=== PATIENT | female | born 1990 | race Caucasian/White ===

== ENCOUNTER → 2018-05-25 13:33 | Outpatient (CLI) | payer OTHER, MEDICAID, SELFPAY ==
[2018-05-25 15:31] LABS: Appearance Urine UA CLEAR; Bilirubin Urine UA NEGATIVE (NEGATIVE); Color Urine UA YELLOW; Glucose Urine UA NEGATIVE (Normal); Ketones Urine UA NEGATIVE (NEGATIVE); Leukocyte Esterase Urine UA NEGATIVE (NEGATIVE); Nitrite Urine UA NEGATIVE (Negative); Occult Blood Urine UA NEGATIVE (Negative); Protein Urine UA NEGATIVE (Negative); Urobilinogen Urine UA 0.2 E.U./dL (0.2)
[2018-05-25 15:32] LABS: Add Manual Diff / Slide Review NO; Basophils Percent Auto 0.3 % (0-2); Eosinophils Percent Auto 1.3 % (2-4); Hematocrit 39.6 % (36-46); Hemoglobin 13.2 g/dL (12.0-16.0); Lymphocytes Percent Auto 30.7 % (25-40); Mean Corpuscular HGB Conc 33.3 % (30-36); Mean Corpuscular Hemoglobin 27.8 PG (26-34); Mean Corpuscular Volume 83.7 fL (80-100); Monocytes Percent Auto 8.7 % (3-14); Neutrophils Absolute Auto 3300 /uL (3000-5900); Platelet Count 209 X10^3/uL (150-400); Red Blood Cell Count 4.73 X10^6/uL (4.0-5.2); Red Cell Distribution Width 13.8 % (11.6-14.8); White Blood Cell Count 5.5 X10^3/uL (4.5-11.0)
[2018-05-25 16:27] LABS: Hepatitis B Surface Antigen NEGATIVE s/c (NEGATIVE); Rubella Antibody IgG 2.9 IU/mL (>15)
[2018-05-25 16:33] LABS: HIV 1 and 2 Antibody NEGATIVE (NEGATIVE); Hep C Virus Ab w/Reflex Quant NEGATIVE s/c (NEGATIVE)
[2018-05-27 10:58] LABS: RPR Screen Nonreactive (Nonreactive)
[2018-05-27 13:51] LABS: HSV1IGG < 0.90 index (< 0.90)
== END ==
PROVIDERS: Visit Provider Obstetrics & Gynecology
DX: Z34.81 Encounter for supervision of other normal pregnancy, first trimester (principal)
CPT/HCPCS: 36415; 80055; 81003; 86695; 86696; 86703; 86787; 86803; 86850; 86900; 86901; 87077; 87086

== ENCOUNTER → 2018-08-09 14:48 | Outpatient (CLI) | payer OTHER, SELFPAY ==
[2018-08-17 09:29] LABS: AFP, Serum 47.5 ng/mL; Calc Gestational Age 18.6; Cigarette Smoker N; Donated Egg NOT GIVEN; Donor Egg Age NOT GIVEN; Estriol, Free 1.89 ng/mL; Inhibin A, Dimeric 148 pg/mL; Maternal Weight 138 lbs; Number of Fetuses NOT GIVEN; Previous Pregnancy Down Syndro NOT GIVEN; hCG, MoM 0.64; hCG, Serum 15.1 IU/mL
== END ==
PROVIDERS: PCP Obstetrics & Gynecology; Visit Provider Obstetrics & Gynecology
DX: Z34.82 Encounter for supervision of other normal pregnancy, second trimester (principal)
CPT/HCPCS: 36415; 82105; 82677; 84702; 86336

== ENCOUNTER → 2018-08-26 09:15 | Outpatient (CLI) | payer OTHER, SELFPAY ==
--- NOTE | 2018-08-26 | DI.US.S_ITS ---
PROCEDURE: US OB >= 14 WEEKS FETUS INDICATIONS: anatomy survey OUTSIDE/PRIOR DATING DATA: Last menstrual period (LMP): 04/01/18. LMP-based estimated date of delivery (THALIA): 01/06/19. First dating scan (date and location): 06/07/18. Estimated date of delivery (THALIA) from first dating scan: 01/03/19. TECHNIQUE: Real-time scanning was performed of the fetus, with image documentation and biometric measurements. Endovaginal scanning: Not needed COMPARISON: None. FINDINGS: General: A single living intrauterine gestation is present. Presentation: Oblique, head directed leftward. Placenta: Placental position is anterior, without previa. Amniotic fluid index: 11.7 cm, normal range is 5-24 cm. heart rate: 150 beats per minute. Maternal cervical canal: 4.2 cm long. Normal lower limit is 2.5 cm. biometrics: Biparietal diameter: 4.9 cm, 20 weeks 6 days Head circumference: 18.4 cm, 20 weeks 6 days Abdominal circumference: 17.2 cm, 22 weeks 1 day Femur length: 3.6 cm, 21 weeks 2 days Estimated gestational age from initial scan: 21 weeks 3 days Composite gestational age from present scan: 22 weeks 2 days Estimated weight and percentile: 440 g, 48th percentile Measurement variability for biometric dating: +/- 7 days from 14 weeks to 15 weeks 6 days gestation, +/- 10 days from 16 weeks to 21 weeks 6 days gestation, +/- 2 weeks from 22 weeks to 27 weeks 6 days gestation, +/- 3 weeks for 28 weeks gestation or later. weight reference: 4500 g or EFW >90/95% is considered macrosomia or large for gestational age. EFW <10% is small for gestational age. EFW 5% or less is considered intra-uterine growth restriction. Anatomic survey: Neuro: Ventricles are non-dilated at less than 10 mm. Cisterna magna is normal at 3-11 mm. Cerebellum is normal in size and morphology. Nuchal skin fold: Normal at less than 6 mm between 14-21 weeks gestational age. Face: Nose and lips, facial profile are normal. Spine: No evidence for spina bifida. Heart: 4-chambered heart is present, with normal ventricular outflow tracts. Note was made of echogenic foci at the left ventricle, without evidence of cardiac morphologic anomaly. This likely is coincidental reflection from the papillary vasculature at time of scanning. Diaphragm: Diaphragm is intact. Stomach: Left-sided stomach is present. Kidneys: No hydronephrosis. Normal is less than 5 mm in 2nd trimester, less than 7 mm in 3rd trimester. Cord: 3-vessel cord has orthotopic insertion. Bladder: Normal in size. Extremities: All 4 extremities identified. IMPRESSION: Appropriate interval growth, no anomaly seen. The echogenic focus within the left ventricle is consistent with high reflecting the at the papillary muscle. In the absence of a morphologic anomaly elsewhere this is considered a normal variant. At one point during the examination there was a question of whether marginal placenta was present but the appearance resolved and is considered a manifestation of transient uterine contraction that mimic the appearance of the placenta in that area. Subsequent images clearly show no evidence of placenta previa or marginal placenta. Dictated by: Matthew Justice M.D. on 08/27/2018 at 16:23 Approved by: Matthew Justice M.D. on 08/27/2018 at 16:30
== END ==
PROVIDERS: PCP Obstetrics & Gynecology; Visit Provider Obstetrics & Gynecology
DX: Z34.82 Encounter for supervision of other normal pregnancy, second trimester (principal); Z3A.22 22 weeks gestation of pregnancy
CPT/HCPCS: 76811

== ENCOUNTER 2018-08-29 19:11 | Outpatient (CLI) | payer OTHER, SELFPAY ==
[2018-08-29 19:49] LABS: Bacteria Urine None Seen; RBC Urine None Seen (0-5/HPF)
[2018-08-29 19:54] LABS: Appearance Urine UA CLEAR; Bilirubin Urine UA NEGATIVE (NEGATIVE); Color Urine UA YELLOW; Glucose Urine UA NEGATIVE (Negative); Ketones Urine UA NEGATIVE (NEGATIVE); Leukocyte Esterase Urine UA NEGATIVE (NEGATIVE); Nitrite Urine UA NEGATIVE (Negative); Occult Blood Urine UA NEGATIVE (Negative); Protein Urine UA NEGATIVE (Negative); Specific Gravity Urine UA 1.015 (1.000-1.035); Urobilinogen Urine UA 0.2 E.U./dL (0.2); pH Urine UA 6.5 (4.5-8.0)
[2018-08-29 19:59] LABS: Culture Indicated Urine Cult Not Indicated; Squamous Epithelial Cell Urine 0-1 /HPF; WBC Urine 0-1/HPF (0-5/HPF)
== END 2018-08-29 20:20 | disposition home or self-care (01) ==
LOC: LABOR 20:20 → OB 08-30 12:56
PROVIDERS: PCP Obstetrics & Gynecology
DX: O26.892 Other specified pregnancy related conditions, second trimester (principal); R10.2 Pelvic and perineal pain; Z3A.21 21 weeks gestation of pregnancy
CPT/HCPCS: 59025; 81001; G0378; G0379

== ENCOUNTER 2018-09-13 14:45 | Observation (INO) | payer OTHER, SELFPAY ==
[2018-09-13 16:56] LABS: Fetal Fibronectin Negative
--- NOTE | 2018-09-13 18:36 | PM.OBTRLD ---
Visit Information Visit Information Date of evaluation: 09/13/18 Primary OB Provider: Sudha Stephens On-call OB Provider: Sudha Stephens Reason for Evaluation: Yes pre-term labor Comments/Additional reasons for admission: Patient is a 28-year-old who presented to the office for a routine OB visit complaining of contractions. She was sent to the Center for monitoring. She was given oral fluids. The contractions subsided. A urine showed concentration and ketones. [facility] Social History Smoking Status: Former smoker Social History Smoking Status: Former smoker Objective Labs Labs: Laboratory Results - last 24 hr 09/13/18 15:32 Fibronectin Negative Evaluation Evaluation Baseline heart rate: 135 Variability: Average (6-10) monitor accelerations: Present monitor decelerations: Absent Category of Tracing: II (Appropriate for gestational age) Cervical dilation (cm): 0 Laboratory results: Laboratory Tests 09/13/18 15:32 Fibronectin Negative Comments: fibronectin - negative Diagnosis, Plan/Disposition Final Diagnosis (1) 23 weeks gestation of : Current Visit: Yes Status: Acute (2) contractions: Current Visit: Yes Status: Acute Plan/Disposition Plan: Assessment: 28-year-old at 23 weeks gestation with dehydration Plan: Push oral fluids Signs and symptoms of labor review Follow-up in 2 weeks for routine OB appointment OB Disposition: home
--- NOTE | 2018-09-13 18:40 | P.TNLD_ITS ---
Visit Information Visit Information Date of evaluation: 09/13/18 Primary OB Provider: Sudha Stephens On-call OB Provider: Sudha Stephens Reason for Evaluation: Yes pre-term labor Comments/Additional reasons for admission: Patient is a 28-year-old who presented to the office for a routine OB visit complaining of contractions. She was sent to the Center for monitoring. She was given oral fluids. The contractions subsided. A urine showed concentration and ketones. [facility] Social History Smoking Status: Former smoker Social History Smoking Status: Former smoker Objective Labs Labs: Laboratory Results - last 24 hr 09/13/18 15:32 Fibronectin Negative Evaluation Evaluation Baseline heart rate: 135 Variability: Average (6-10) monitor accelerations: Present monitor decelerations: Absent Category of Tracing: II (Appropriate for gestational age) Cervical dilation (cm): 0 Laboratory results: Laboratory Tests 09/13/18 15:32 Fibronectin Negative Comments: fibronectin - negative Diagnosis, Plan/Disposition Final Diagnosis (1) 23 weeks gestation of : Current Visit: Yes Status: Acute (2) contractions: Current Visit: Yes Status: Acute Plan/Disposition Plan: Assessment: 28-year-old at 23 weeks gestation with dehydration Plan: Push oral fluids Signs and symptoms of labor review Follow-up in 2 weeks for routine OB appointment OB Disposition: home
--- NOTE | 2018-09-14 23:28 | P.TNLD_ITS ---
Visit Information Visit Information Date of evaluation: 09/13/18 Primary OB Provider: Sudha Stephens Reason for Evaluation: Yes pre-term labor [facility] Social History Smoking Status: Former smoker Social History Smoking Status: Former smoker Evaluation Evaluation Baseline heart rate: 135 Variability: Average (6-10) (Appropriate for gestational age) monitor accelerations: Present monitor decelerations: Absent Contraction Frequency (minutes): 0 Category of Tracing: II (Appropriate for gestational age) Laboratory results: Laboratory Tests 09/13/18 15:32 Fibronectin Negative Diagnosis, Plan/Disposition Final Diagnosis (1) 23 weeks gestation of : Current Visit: No Status: Acute (2) contractions: Current Visit: No Status: Acute Plan/Disposition Plan: Discharge to home Signs and symptoms of labor review Follow-up for regularly scheduled visit OB Disposition: home
== END 2018-09-13 18:00 | disposition home or self-care (01) ==
PROVIDERS: Admitting Provider Obstetrics & Gynecology; PCP Obstetrics & Gynecology; Visit Provider Obstetrics & Gynecology
DX: O60.03 Preterm labor without delivery, third trimester (principal); Z3A.23 23 weeks gestation of pregnancy
CPT/HCPCS: 59025; 59050; 82731; G0378; G0379

== ENCOUNTER → 2018-09-18 09:06 | Outpatient (CLI) | payer OTHER, SELFPAY ==
[2018-09-18 10:46] LABS: Hematocrit 32.4 % (36-46)
[2018-09-18 11:05] LABS: GTT (PREG) 1 Hour PP 50gm Dose 94 mg/dL (76-139)
== END ==
PROVIDERS: PCP Obstetrics & Gynecology; Visit Provider Obstetrics & Gynecology
DX: Z34.82 Encounter for supervision of other normal pregnancy, second trimester (principal)
CPT/HCPCS: 36415; 82950; 85014; 85018

== ENCOUNTER → 2018-12-08 09:16 | Outpatient (CLI) | payer OTHER, SELFPAY ==
[2018-12-09 13:12] LABS: Strep Grp B PCR NEG for Grp B Strep
== END ==
PROVIDERS: PCP Obstetrics & Gynecology; Visit Provider Obstetrics & Gynecology
DX: Z34.83 Encounter for supervision of other normal pregnancy, third trimester (principal)
CPT/HCPCS: 87653

== ENCOUNTER 2018-12-29 20:05 | Inpatient (IN) | payer OTHER, SELFPAY ==
[2018-12-29 21:04] LABS: Add Manual Diff / Slide Review NO; Basophils Absolute Auto 0 /uL (0-100); Basophils Percent Auto 0.5 % (0-2); Eosinophils Absolute Auto 100 /uL (0-450); Eosinophils Percent Auto 1.2 % (2-4); Hematocrit 33.3 % (36-46); Hemoglobin 10.7 g/dL (12.0-16.0); Lymphocytes Absolute Auto 2100 /uL (1100-4500); Lymphocytes Percent Auto 30.3 % (25-40); Mean Corpuscular HGB Conc 32.1 % (30-36); Mean Corpuscular Hemoglobin 23.6 PG (26-34); Mean Corpuscular Volume 73.3 fL (80-100); Monocytes Absolute Auto 700 /uL (0-900); Monocytes Percent Auto 9.4 % (3-14); Neutrophils Absolute Auto 4100 /uL (1500-7000); Neutrophils Percent Auto 58.6 % (50-75); Platelet Count 243 X10^3/uL (150-400); Red Blood Cell Count 4.55 X10^6/uL (4.0-5.2); Red Cell Distribution Width 15.9 % (11.6-14.8)
--- NOTE | 2018-12-30 | PATH_ITS ---
[facility] Accession Number: [id number] . 01 Material submitted: . fallopian tube - BILATERAL FALLOPIAN TUBES SEGMENTS . 02 Diagnosis: Bilateral Fallopian Tube Segments: Complete cross-sections of segments of fallopian tube x2. MRV/01/03/2019 . 02 Electronically signed: . Nata Gonzales MD, Pathologist NPI- [id number] . 01 Gross description: . Received in formalin, labeled with the patient's name and bilateral fallopian tube segments, are two tubular segments of fallopian tube without fimbriated ends measuring 1.5 cm in length by 0.5 cm in diameter and 1.3 cm in length by 0.4 cm in diameter. The specimens are submitted intact in two cassettes to be cut by histology. (MERCEDEZ:[id number]) /MRV . 02 Pathologist provided ICD-10: Z30.2 . 02 CPT . 193297 Performed at: 01 [facility] [address] [facility], [place], [place] [id number] MD Faizan Palm MD Phone: [phone] Performed at: 02 [facility] [address] [place], [place] [id number] MD Zuleyka Mireles MD Phone: [phone]
[2018-12-30] MEDS: miSOPROStol 25 MCG TABLET VAG (05:08)
[2018-12-30] MEDS: LACTATED RINGERS 1,000 ML 100 ML IV (09:07)
[2018-12-30] MEDS: OXYTOCIN PREMIX 30 UNIT/500 ML PLAST..BAG IV (09:08)
[2018-12-30] MEDS: LACTATED RINGERS 1,000 ML 42 ML IV (17:05)
[2018-12-30] MEDS: BUPIVACAINE 0.5% W/ EPI (PF) VIAL 30 ML INJ (18:09)
[2018-12-30] MEDS: KETOROLAC 30 MG/ML VIAL IV (18:32)
[2018-12-30 18:36] VITALS: BP 83/56; BP 86/54; PULSE 95; PULSE 96; RESP 13; TEMP 36.1; O2SAT 96; O2SAT 97
[2018-12-30 18:41] VITALS: BP 92/62; PULSE 102; RESP 17; O2SAT 95
[2018-12-30 19:56] VITALS: TEMP 36.8
[2018-12-30] MEDS: OXYCODONE/ACETAMINOPHEN 5/325 TABLET 2 TAB PO (22:12)
[2018-12-30 23:32] VITALS: BP 107/70
[2018-12-31] MEDS: KETOROLAC 30 MG/ML VIAL IV ×3 (00:30→12:34)
[2018-12-31] MEDS: OXYCODONE/ACETAMINOPHEN 5/325 TABLET 2 TAB PO ×4 (02:27→16:32)
[2018-12-31 06:02] LABS: Hematocrit 32.6 % (36-46); Hemoglobin 10.6 g/dL (12.0-16.0)
[2018-12-31] MEDS: DOCUSATE 250 MG CAPSULE PO (12:32)
[2018-12-31] MEDS: PRENATAL VIT,CALC/IRON/FOLIC 1 TABLET 1 TAB PO (12:32)
[2018-12-31 17:06] VITALS: BP 102/63; PULSE 73; RESP 17; TEMP 36.7
[2018-12-31] MEDS: MEASLES,MUMPS,RUBELLA VACC/PF 0.5 ML VIAL SUBCUT (18:38)
--- NOTE | 2019-01-01 03:10 | PM.GYNOP.1 ---
Operative Date/Time/Diagnoses Date of procedure: 12/30/18 Time of procedure: 17:45 Pre-op diagnosis: Multiparity Desires permanent sterilization Post-op diagnosis: same Procedure: Procedures Operation Date: 12/30/18 17:00 Actual Procedures Side Surgeon p Post Bilateral Tubal Ligation Sudha Stephens MD Indications: Multiparity Desires permanent sterilization Surgeon: Sudha Stephens Anesthesia Type: Epidural and Local Operative Notes Findings: Normal uterus, tubes, and ovaries Closure Type: primary Specimen(s): portion of left tube and portion of right tube Estimated blood loss (mL): 5 Blood products transfused: none Procedure in detail: After informed consent was obtained, the patient was taken to the operating room where she was placed in the dorsal supine position. After epidural anesthesia was found be adequate, she was prepped and draped in the usual sterile fashion. A timeout was performed. 6 mL of half percent Marcaine with epinephrine were injected in the umbilical fold. A 2 cm incision was made. This was carried down to the underlying layer fascia. The fascia was nicked in the midline and the incision extended bilaterally with the Roberts scissors. The peritoneum was grasped between 2 hemostats and entered sharply with the Metzenbaum scissors. The left tube was grasped with a Farheen and carried out to the fimbriated end. Two [address] to the distal end a 2-1/2 cm segment of tube was ligated with O-plain chromic x 2. A 1 cm segment of tube was excised. The ends of the tube were cauterized for hemostasis. The left tube was returned to the peritoneal cavity. This was repeated on the patient's right tube. Hemostasis was achieved. The fascia was reapproximated with 0 Vicryl. The subcutaneous layer was reapproximated with 3-0 Vicryl with 2 simple interrupted sutures. The skin was closed with 4-0 Biosyn in a sub cuticular fashion. Steri-Strips, 2 x 2's, and an OpSite were placed. Sponge, lap, and instrument counts were correct x-2. The patient tolerated the procedure well, was taken to PACU in stable condition. Complications: none Post-operative Condition: stable Disposition: PACU Plan for aftercare: To the center after recovery
--- NOTE | 2019-01-19 13:34 | P.HPOB_ITS ---
OB HPI Date/Time Date of admission: 12/30/18 Date Patient Seen: 12/30/18 Time Patient Seen: 07:30 History of Present Condition Chief complaint: Labor : 7 Para: 3 Estimated Date of Delivery: 01/06/19 Estimated Gestational Age (weeks): 39 Narrative: Kanwal Guzman is a 28 year old female 7 para 3 at 39 weeks g estation for induction of labor Patient is and is being deployed in a few days Patient has a history of rapid labors. Indications Indication for induction OB: history of rapid labor History of Present care: good care, initiated at week # (9), number of visits (9) and pounds weight gain (28) Dating criteria: LMP confirmed by 1st trimester US Ultrasounds: normal 1st trimester US and normal mid trimester US Obstetrical complications: none Medical complications: none Preadmission Labs Blood type: O (+) positive -: Antibody screen: negative, GBS status: negative, HBsAG: negative, HIV: negative, HSV 1: negative, HSV 2: positive and RPR/VDLR: negative -: Chlamydia screen: not detected and Gonorrhea screen: not detected -: Rubella: not immune and Varicella: immune HCT: 39.6 HCAB: negative PAP: Normal Quad screen: Normal Urine: Negative 1 hr GTT: 94 Prior (ies) History: 3 , 1 delivered in the bed without pt aware 2 EAB 1 SAB Evaluation Evaluation Baseline heart rate: 140 Variability: Moderate (11-25) monitor accelerations: Present monitor decelerations: Absent Contraction Frequency (minutes): 5 Category of Tracing: I Cervical dilation (cm): 1 Cervical effacement (%): 75 station: -2 Laboratory results: Laboratory Tests 12/29/18 12/29/18 12/31/18 20:45 20:45 05:52 WBC 7.0 RBC 4.55 Hgb 10.7 L 10.6 L Hct 33.3 L 32.6 L MCV 73.3 L MCH 23.6 L MCHC 32.1 RDW 15.9 H Plt Count 243 Neut % (Auto) 58.6 Lymph % (Auto) 30.3 Deuel % (Auto) 9.4 Eos % (Auto) 1.2 L Baso % (Auto) 0.5 Neut # (Auto) 4100 Lymph # (Auto) 2100 Deuel # (Auto) 700 Eos # (Auto) 100 Baso # (Auto) 0 Blood Type O Positive Antibody Screen Negative [facility] Medical History (Updated 01/12/19 @ 12:31 by Danielle Latif MA) S/P tubal ligation (Resolved ~12/30/18) Social History Smoking Status: Former smoker Social History Smoking Status: Former smoker Meds Home Medications Medication Instructions Recorded Confirmed Type Double Electric Breast Pump #1 ea 11/17/18 01/12/19 Rx ibuprofen 600 mg PO Q6H PRN #30 tab 12/31/18 01/12/19 Rx Allergies Allergy/AdvReac Type Severity Reaction Status Date / Time hydrocodone AdvReac Severe HIVES & Verified 01/12/19 12:31 EXTREME VOMITING magnesium carbonate AdvReac Mild Topical Verified 01/12/19 12:31 itching, rash PRE OP SANI WIPES Allergy Intermediate RASH Uncoded 01/12/19 12:31 Exam Vital Signs (past 8 hours): Oxygen Delivery Method Room Air Narrative Exam Narrative: Generally: No acute distress Fundal height: 39 cm Estimated weight: 8 lb Extremities: Negative Homans, no edema Objective Labs Result Diagrams: 12/31/18 05:52 Assessment and Plan Assessment and Plan Assessment and Plan narrative: Assessment: 28-year-old 7 para 3 at 39 weeks gestation status post cervical ripening for induction of labor Desires permanent sterilization Plan: Pitocin per protocol 2 Artificial rupture of membranes when able Epidural analgesia as needed Expected management to spontaneous vaginal delivery tubal ligation Time Spent with Patient Total time spent with greater than 50% in coordination of care (as documented) at patient's floor/unit and/or counseling patient:: 15-24 minutes
--- NOTE | 2019-01-19 13:34 | PM.OBPRVD ---
Events: Labor Induction Delivery date: 12/30/18 Intrapartal events: None Cervical ripening method: per misoprostal protocol Induction method: per pitocin protocol Delivery augmentation: rupture of membranes Delivery monitor: external FHT and external uterine Route of delivery: Episiotomy description: None L&D Laceration Description: None Estimated blood loss (mL): 150 Anesthesia type: Epidural Complications: None Narrative: Patient complete and pushed for 10 min. At 2:25 p.m., a live female infant delivered spontaneously over an intact perineum. The remainder of the body delivered without difficulty and was placed on mom's abdomen. The cord was double clamped and cut after it stopped pulsing. Cord bloods were obtained. The placenta delivered intact with a 3 vessel cord at 2:30 p.m.. Pitocin was given in the IV fluids. Fundus was massaged to firm. No lacerations. Apgars 8 at 1 min and 9 at 5 min. Weight 8 lb 2.6 oz. Epidural analgesia. Mom and stable to recovery. Plan for aftercare: To routine carte
--- NOTE | 2019-01-19 13:40 | P.DS_ITS ---
Discharge Providers Date of admission: 12/29/18 20:05 Discharge Date: 12/31/18 Primary care physician: Sudha Stephens MD Consults: 12/30/18 18:57 Consult to Operating Room Nurse Routine Comment: Discharge provider: Sudha Stephens MD Summary Date Patient Seen: 12/31/18 Time Patient Seen: 07:30 Procedures: Cytotec cervical ripening Pitocin induction of labor Artificial rupture of membranes Epidural analgesia Spontaneous vaginal delivery tubal ligation Hospital Course: Patient is a 28-year-old 7 para 3 at 39 weeks gestation who presented for cervical ripening on 12/29/2018. She received 1 dose of Cytotec. On the morning of 12/30/2018 Pitocin was started. Artificial rupture of membranes was performed. An epidural was received for pain management. She progressed and had a spontaneous vaginal delivery without complication. She had a tubal ligation later that day. Her course was unremarkable and she was discharged home on 12/31/2018. Peripartum Data Delivery Method: Natural Vaginal Laceration description: None Episiotomy description: None Procedures: Epidural analgesia Cytotec cervical ripening Pitocin induction of labor Artificial rupture of membranes Spontaneous vaginal delivery tubal ligation complications: none Status at Discharge Cognitive/behavioral status at discharge: oriented Functional status at discharge: independent ambulation Overall status at discharge: patient is progressing back to baseline Time Spent with Patient Total time spent providing and/or coordinating discharge services: Less than 30 minutes Objective Labs Result Diagrams: 12/31/18 05:52 Exam Vital Signs (past 8 hours): Oxygen Delivery Method Room Air Narrative Exam Narrative: Generally: Patient is sitting up in bed, holding infant, no acute distress Fundus: Firm at U -1 Incision: Clean dry and intact with op site Extremities: Negative Homans, trace edema Discharge Plan Discharge Plan Patient Disposition: Home Discharge comment: Call with fever, chills, redness or drainage around the incision or bleeding vaginally more than a pad in an hour Discharge Med Rec/Prescriptions Prescriptions: New ibuprofen 600 mg tablet 600 mg PO Q6H PRN (Reason: pain and cramping) Qty: 30 RF: 2 Discontinued oxycodone-acetaminophen [Percocet] 5-325 mg tablet 1 tab PO Q4-6H PRN (Reason: pain) Qty: 20 RF: 0 No Action Double Electric Breast Pump Qty: 1 RF: 0 Follow up/Referrals: Sudha Stephens MD [Primary Care Provider] - 2 Weeks (Please follow up with Dr. Stephens for an incision check on ThursdayJanuary 12 at 12:15 with a 11:55 check in time. Please follow up with Dr. Stephens for a post check on February 10 at 2:30 with a 2:10 check in time. If you have any questions/concerns or need to reschedule please call [phone].) Provider Discharge Instructions Diet: Regular Activity: No intercourse Skin/Wound/Dressing Care Report to your healthcare provider any signs of infection, such as:: chills, fever, increased pain, unusual drainage and unusual redness Dressing: Remove outer plastic dressing and guaze after first shower Visit Report/Discharge Packet Instructions: DI for Tubal Ligation, DI for Labor and Delivery, Vaginal Stand Alone Forms: Discharge: Care Discharge Data Primary Care Provider: Sudha Stephens Attending Provider: Sudha Stephens Admit Date/Time: 12/29/18 20:05 Discharges patient from system. Discharge Date/Time: 12/31/18 19:15
== END 2018-12-31 19:15 | disposition home or self-care (01) | DRG 798 ==
PROVIDERS: Admitting Provider Obstetrics & Gynecology; PCP Obstetrics & Gynecology; Visit Provider Obstetrics & Gynecology
PROC: 10E0XZZ Delivery of Products of Conception, External Approach (ICD-10-PCS; CPT 58605; principal; 2018-12-30 17:00)
DX: O80 Encounter for full-term uncomplicated delivery (principal); Z37.0 Single live birth; Z3A.39 39 weeks gestation of pregnancy; Z30.2 Encounter for sterilization
CPT/HCPCS: 01967; 36415; 36592; 58605; 59050; 59400; 85014; 85018; 85025; 86850; 86900; 86901; 88302; G0379; J1885; J2250; J2590; J3010

== ENCOUNTER 2019-10-25 17:05 | Emergency (ER) | payer OTHER, SELFPAY ==
[2019-10-25 17:07] VITALS: BP 105/69; PULSE 118; RESP 13; TEMP 37.1; O2SAT 100; BMI 18.4
--- NOTE | 2019-10-25 17:32 | PC.NURSE ---
reports, breast feeding 10 months, noted left breast pain and fever along with migraine headache arrived with dark glasses. denies fever,coughing,+nausea with vomiting due to migraine. fever treated with tylenol aircraft captain.
[2019-10-25 17:33] VITALS: TEMP 37.2
--- NOTE | 2019-10-25 17:49 | ED_ITS ---
HPI - Skin/Abscess/Foreign Bdy <KOSTAS Teresa - Last Filed: 10/25/19 20:54> General Chief complaint: Skin/Abscess/Foreign Body Stated complaint: thinks mastitis Time Seen by Provider: 10/25/19 17:29 Source: patient Mode of arrival: Ambulatory Limitations: no limitations History of Present Illness HPI narrative: The patient is a 29-year-old female former smoker who is 10 months who presents with a chief complaint of headache/migraine as well as concern for mastitis on her left breast. She states that she has pain radiating from her breast that started while breast-feeding today. She then developed a fever of up to 101?. She states that this is similar to her prev ious presentation of mastitis. She states she started having headache, does have a history of migraines, but is unable to take her normal migraine medications due to . She tried to Tylenol arthritis approximately 4-5 hours ago. She complains of nausea, no vomiting. States that this is the similar presentation of a migraine for her. She denies any diarrhea or abdominal pain. Related Data Home Medications Medication Instructions Recorded Confirmed prenat.vits,tigre,[id number] 1 tab PO DAILY 02/10/19 02/10/19 Previous Rx's Medication Instructions Recorded Double Electric Breast Pump #1 ea 11/17/18 ibuprofen 600 mg PO Q6H PRN #30 tab 12/31/18 dicloxacillin 500 mg PO QID 7 Days #28 cap 10/25/19 ondansetron 4 mg PO Q6H PRN #20 tab 10/25/19 Allergies Allergy/AdvReac Type Severity Reaction Status Date / Time buspirone Allergy Verified 10/25/19 17:10 citalopram Allergy Verified 10/25/19 17:10 hydrocodone AdvReac Severe HIVES & Verified 10/25/19 17:10 EXTREME VOMITING magnesium carbonate AdvReac Mild Topical Verified 10/25/19 17:10 itching, rash PRE OP SANI WIPES Allergy Intermediate RASH Uncoded 02/10/19 14:36 Review of Systems <KOSTAS Teresa - Last Filed: 10/25/19 20:54> Review of Systems Narrative: GENERAL: Denies chills, fatigue, malaise, fever, sweats. HEENT: Denies sinus pain, ear pain, sore throat, difficulty swallowing, dizziness. RESPIRATORY: Denies dyspnea, cough, wheezing, hemoptysis, sputum. CARDIOVASCULAR: Denies chest pain, palpitations, orthopnea, edema, GASTROINTESTINAL: Denies nausea, vomiting, abdominal pain, diarrhea, constipation, melena. : Denies dysuria, frequency, incontinence, hematuria, urinary retention. MUSCULOSKELETAL: denies weakness, joint pain, or bony pain SKIN: See HPI NEUROLOGIC: See HPI PSYCHIATRIC: No concerning psychosocial issues. 12 point review of systems is negative except for those stated above Patient History <KOSTAS Teresa - Last Filed: 10/25/19 20:54> Surgical History (Updated 02/16/19 @ 15:10 by Sudha Stephens MD) S/P tubal ligation (Resolved ~12/30/18) Social History Smoking Status: Former smoker Smoking Status: Former smoker alcohol intake frequency: holidays/special occasions only Substance Use Type: does not use Exam <KOSTAS Teresa - Last Filed: 10/25/19 20:54> Narrative Exam Narrative: GENERAL: This is a well-nourished, well-developed patient, in acute distress HEAD: Atraumatic. Normocephalic. No temporal or scalp tenderness. EYES: Pupils equal round and reactive. Extraocular motions intact. No scleral icterus. No injection or drainage. ENT: Nose without bleeding, purulent drainage or septal hematoma. Throat without erythema, tonsillar hypertrophy or exudate. Uvula midline. Airway patent. NECK: Trachea midline. No JVD or lymphadenopathy. Supple, nontender, no meningeal signs. CARDIOVASCULAR: Regular rate and rhythm RESPIRATORY: Clear to auscultation. Breath sounds equal bilaterally. No wheezes, rales, or rhonchi. GASTROINTESTINAL: Abdomen soft, non-tender, nondistended. No hepato- splenomegaly, or palpable masses. No guarding. EXTREMITIES: No clubbing, cyanosis, or edema. No joint tenderness, effusion, or edema noted. BACK: Nontender without deformity or crepitance. No flank tenderness. NEURO: AOx3. Strength is equal upper and lower extremities bilaterally. Stable gait. No gross cranial nerve deficit. SKIN: Slight erythema noted on lateral aspect of left breast not well demarcated, slight pain to palpation Initial Vital Signs Initial Vital Signs: Vital Signs Temperature 98.7 F 10/25/19 17:07 Pulse Rate 118 H 10/25/19 17:07 Respiratory Rate 13 10/25/19 17:07 Blood Pressure 105/69 10/25/19 17:07 Pulse Oximetry 100 10/25/19 17:07 <Rashid Rueda DO - Last Filed: 10/25/19 22:24> Initial Vital Signs Initial Vital Signs: Vital Signs Temperature 98.7 F 10/25/19 17:07 Pulse Rate 118 H 10/25/19 17:07 Respiratory Rate 13 10/25/19 17:07 Blood Pressure 105/69 10/25/19 17:07 Pulse Oximetry 100 10/25/19 17:07 Course <JACK Teresa-EFRAÍN - Last Filed: 10/25/19 20:54> Orders Ordered: ED Orders 10/25/19 18:00 Complete Blood Count AUTO DIFF Stat Comprehensive Metabolic Panel Stat Lactate (Lactic Acid) Stat Procalcitonin Stat Discontinued Medications Dicloxacillin Sodium (Dicloxacillin) 500 mg PO Q6HR ROBERT Dicloxacillin Sodium (Dicloxacillin) 500 mg PO Q6HR ROBERT Last Admin: 10/25/19 21:00 Dose: 500 mg Documented by: LILY Sodium Chloride (Normal Saline 0.9%) 1,000 mls @ 1,000 mls/hr IV BOLUS ONE Stop: 10/25/19 18:45 Last Infusion: 10/25/19 19:22 Dose: 0 mls/hr Documented by: Admin: 10/25/19 17:59 Dose: 1,000 mls/hr Documented by: CIELO Ondansetron HCl (Zofran) 4 mg IV NOW ONE Stop: 10/25/19 17:47 Last Admin: 10/25/19 17:59 Dose: 4 mg Documented by: CIELO Oxycodone/Acetaminophen (Percocet 5/325) 1 tab PO NOW ONE Stop: 10/25/19 18:45 Last Admin: 10/25/19 19:28 Dose: 1 tab Documented by: LILY Vital Signs Vital signs: Vital Signs - 8 hr 10/25/19 17:07 10/25/19 17:33 10/25/19 18:10 Temperature 98.7 F 98.9 F Pulse Rate 118 H 98 H Respiratory Rate 13 18 Blood Pressure 105/69 Blood Pressure [Left Arm] 88/54 L Pulse Oximetry 100 98 10/25/19 19:01 10/25/19 21:01 Temperature Pulse Rate 87 90 Respiratory Rate 16 15 Blood Pressure 97/61 Blood Pressure [Left Arm] 88/58 L Pulse Oximetry 100 96 <Rashid Rueda, DO - Last Filed: 10/25/19 22:24> Orders Ordered: ED Orders 10/25/19 18:00 Complete Blood Count AUTO DIFF Stat Comprehensive Metabolic Panel Stat Lactate (Lactic Acid) Stat Procalcitonin Stat Discontinued Medications Dicloxacillin Sodium (Dicloxacillin) 500 mg PO Q6HR ROBERT Dicloxacillin Sodium (Dicloxacillin) 500 mg PO Q6HR ROBERT Last Admin: 10/25/19 21:00 Dose: 500 mg Documented by: LILY Sodium Chloride (Normal Saline 0.9%) 1,000 mls @ 1,000 mls/hr IV BOLUS ONE Stop: 10/25/19 18:45 Last Infusion: 10/25/19 19:22 Dose: 0 mls/hr Documented by: Admin: 10/25/19 17:59 Dose: 1,000 mls/hr Documented by: CIELO Ondansetron HCl (Zofran) 4 mg IV NOW ONE Stop: 10/25/19 17:47 Last Admin: 10/25/19 17:59 Dose: 4 mg Documented by: CIELO Oxycodone/Acetaminophen (Percocet 5/325) 1 tab PO NOW ONE Stop: 10/25/19 18:45 Last Admin: 10/25/19 19:28 Dose: 1 tab Documented by: LILY Vital Signs Vital signs: Vital Signs - 8 hr 10/25/19 17:07 10/25/19 17:33 10/25/19 18:10 Temperature 98.7 F 98.9 F Pulse Rate 118 H 98 H Respiratory Rate 13 18 Blood Pressure 105/69 Blood Pressure [Left Arm] 88/54 L Pulse Oximetry 100 98 10/25/19 19:01 10/25/19 21:01 Temperature Pulse Rate 87 90 Respiratory Rate 16 15 Blood Pressure 97/61 Blood Pressure [Left Arm] 88/58 L Pulse Oximetry 100 96 MDM - Skin/Abscess/Foreign Bdy <Fariba Mcpherson, [employer]TER-BC - Last Filed: 10/25/19 20:54> Lab Data Result diagrams: 10/25/19 18:00 10/25/19 18:00 Labs: Lab Results 10/25/19 10/25/19 10/25/19 Range/Units 18:00 18:00 18:00 WBC 8.6 (4.5-11.0) X10^3/uL RBC 4.70 (4.0-5.2) X10^6/uL Hgb 13.0 (12.0-16.0) g/dL Hct 39.5 (36-46) % MCV 83.9 (80-100) fL MCH 27.6 (26-34) PG MCHC 32.9 (30-36) % RDW 13.6 (11.6-14.8) % Plt Count 184 (150-400) X10^3/uL Neut % (Auto) 78.2 H (50-75) % Lymph % (Auto) 12.5 L (25-40) % [place] % (Auto) 8.6 (3-14) % Eos % (Auto) 0.5 L (2-4) % Baso % (Auto) 0.2 (0-2) % Neut # (Auto) 6700 (6821-7389) /uL Lymph # (Auto) 1100 (4853-5744) /uL [place] # (Auto) 700 (0-900) /uL Eos # (Auto) 0 (0-450) /uL Baso # (Auto) 0 (0-100) /uL Sodium 138 (137-145) mmol/L Potassium 3.6 (3.4-5.1) mmol/L Chloride 103 (98-107) mmol/L Carbon Dioxide 26 (22-32) mmol/L BUN 14 (7-17) mg/dL Creatinine 0.61 (0.52-1.04) mg/dL Estimated GFR > 60.0 (>60) mL/min BUN/Creatinine Ratio 23.0 H (6-22) Glucose 114 H (70-100) mg/dL Lactate (0.7-2.1) mmol/L Calcium 9.1 (8.4-10.2) mg/dL Total Bilirubin 0.3 (0.2-1.3) mg/dL AST 50 H (14-36) IU/L ALT 22 (<35) IU/L Alkaline Phosphatase 83 (38-126) U/L Total Protein 7.3 (6.3-8.2) g/dL Albumin 4.3 (3.5-5.0) g/dL Globulin 3.0 (1.7-4.1) g/dL Albumin/Globulin Ratio 1.4 (1.0-2.8) Procalcitonin < 0.05 (<0.5) ng/mL 10/25/19 Range/Units 18:00 WBC (4.5-11.0) X10^3/uL RBC (4.0-5.2) X10^6/uL Hgb (12.0-16.0) g/dL Hct (36-46) % MCV (80-100) fL MCH (26-34) PG MCHC (30-36) % RDW (11.6-14.8) % Plt Count (150-400) X10^3/uL Neut % (Auto) (50-75) % Lymph % (Auto) (25-40) % [place] % (Auto) (3-14) % Eos % (Auto) (2-4) % Baso % (Auto) (0-2) % Neut # (Auto) (9655-0580) /uL Lymph # (Auto) (2033-9386) /uL [place] # (Auto) (0-900) /uL Eos # (Auto) (0-450) /uL Baso # (Auto) (0-100) /uL Sodium (137-145) mmol/L Potassium (3.4-5.1) mmol/L Chloride (98-107) mmol/L Carbon Dioxide (22-32) mmol/L BUN (7-17) mg/dL Creatinine (0.52-1.04) mg/dL Estimated GFR (>60) mL/min BUN/Creatinine Ratio (6-22) Glucose (70-100) mg/dL Lactate 2.0 (0.7-2.1) mmol/L Calcium (8.4-10.2) mg/dL Total Bilirubin (0.2-1.3) mg/dL AST (14-36) IU/L ALT (<35) IU/L Alkaline Phosphatase (38-126) U/L Total Protein (6.3-8.2) g/dL Albumin (3.5-5.0) g/dL Globulin (1.7-4.1) g/dL Albumin/Globulin Ratio (1.0-2.8) Procalcitonin (<0.5) ng/mL MDM Narrative Medical decision making narrative: The patient is a 29-year-old female who presents with a chief complaint of possible mastitis. She states that this is similar to her previous presentation. She does have slight erythema and pain to palpation on exam with no palpable abscess. She has no elevated wbc's, no leukocytosis, normal lactate negative procalcitonin. She also complains of headache, though has no neurological deficit and denies any thunderclap sensation. She states that this is typical migraine for her, though she is unable to take many of her migraine medications because she is breast-feeding and does not want to dump any milk and her baby does not take a bottle. Given a grossly normal lab work, nontoxic appearing I did start her on dicloxacillin as per up-to-date recommendations. She was treated with Zofran, fluids, and a Percocet for her headache. I did offer to do further headache cocktail medications, but the patient did not want them and requested to go home. I discussed at length coming back to the emergency department for any acute c oncerns such as fever, signs of systemic illness etcetera as well as follow-up with primary care provider in the next few days. Patient was able to tolerate her 1st dose of antibiotics in the emergency department. No questions or concerns upon discharge, patient states understanding of return precautions as well as follow-up care. <Rashid Rueda DO - Last Filed: 10/25/19 22:24> Lab Data Labs: Lab Results 10/25/19 10/25/19 10/25/19 Range/Units 18:00 18:00 18:00 WBC 8.6 (4.5-11.0) X10^3/uL RBC 4.70 (4.0-5.2) X10^6/uL Hgb 13.0 (12.0-16.0) g/dL Hct 39.5 (36-46) % MCV 83.9 (80-100) fL MCH 27.6 (26-34) PG MCHC 32.9 (30-36) % RDW 13.6 (11.6-14.8) % Plt Count 184 (150-400) X10^3/uL Neut % (Auto) 78.2 H (50-75) % Lymph % (Auto) 12.5 L (25-40) % [place] % (Auto) 8.6 (3-14) % Eos % (Auto) 0.5 L (2-4) % Baso % (Auto) 0.2 (0-2) % Neut # (Auto) 6700 (8718-4841) /uL Lymph # (Auto) 1100 (4162-2348) /uL [place] # (Auto) 700 (0-900) /uL Eos # (Auto) 0 (0-450) /uL Baso # (Auto) 0 (0-100) /uL Sodium 138 (137-145) mmol/L Potassium 3.6 (3.4-5.1) mmol/L Chloride 103 (98-107) mmol/L Carbon Dioxide 26 (22-32) mmol/L BUN 14 (7-17) mg/dL Creatinine 0.61 (0.52-1.04) mg/dL Estimated GFR > 60.0 (>60) mL/min BUN/Creatinine Ratio 23.0 H (6-22) Glucose 114 H (70-100) mg/dL Lactate (0.7-2.1) mmol/L Calcium 9.1 (8.4-10.2) mg/dL Total Bilirubin 0.3 (0.2-1.3) mg/dL AST 50 H (14-36) IU/L ALT 22 (<35) IU/L Alkaline Phosphatase 83 (38-126) U/L Total Protein 7.3 (6.3-8.2) g/dL Albumin 4.3 (3.5-5.0) g/dL Globulin 3.0 (1.7-4.1) g/dL Albumin/Globulin Ratio 1.4 (1.0-2.8) Procalcitonin < 0.05 (<0.5) ng/mL 10/25/19 Range/Units 18:00 WBC (4.5-11.0) X10^3/uL RBC (4.0-5.2) X10^6/uL Hgb (12.0-16.0) g/dL Hct (36-46) % MCV (80-100) fL MCH (26-34) PG MCHC (30-36) % RDW (11.6-14.8) % Plt Count (150-400) X10^3/uL Neut % (Auto) (50-75) % Lymph % (Auto) (25-40) % [place] % (Auto) (3-14) % Eos % (Auto) (2-4) % Baso % (Auto) (0-2) % Neut # (Auto) (2050-7412) /uL Lymph # (Auto) (8484-6909) /uL [place] # (Auto) (0-900) /uL Eos # (Auto) (0-450) /uL Baso # (Auto) (0-100) /uL Sodium (137-145) mmol/L Potassium (3.4-5.1) mmol/L Chloride (98-107) mmol/L Carbon Dioxide (22-32) mmol/L BUN (7-17) mg/dL Creatinine (0.52-1.04) mg/dL Estimated GFR (>60) mL/min BUN/Creatinine Ratio (6-22) Glucose (70-100) mg/dL Lactate 2.0 (0.7-2.1) mmol/L Calcium (8.4-10.2) mg/dL Total Bilirubin (0.2-1.3) mg/dL AST (14-36) IU/L ALT (<35) IU/L Alkaline Phosphatase (38-126) U/L Total Protein (6.3-8.2) g/dL Albumin (3.5-5.0) g/dL Globulin (1.7-4.1) g/dL Albumin/Globulin Ratio (1.0-2.8) Procalcitonin (<0.5) ng/mL Discharge Plan Departure Patient Disposition: Home Clinical Impression: Mastitis Headache Qualifiers: Headache type: unspecified Headache chronicity pattern: unspecified pattern Intractability: not intractable Qualified Code(s): R51 - Headache Discharge Date/Time: 10/25/19 21:02 Instructions: DI for Migraine, DI for Mastitis, DI for Headache Activity Restrictions/Additional Instructions: Thank you for trusting us with your care today I am sorry or not feeling well help you feel better soon. I sent a prescription of dicloxacillin to [facility] in [facility]. Please follow-up with primary care provider in the next few days. Monitor for signs of worsening including fever, inability keep down fluids etcetera I also sent a prescription of Zofran to [facility] in [facility] for nausea if you needed Please come back to the emergency department any acute concerns Prescriptions: New dicloxacillin 500 mg capsule 500 mg PO QID 7 Days Qty: 28 RF: 0 ondansetron 4 mg tablet,disintegrating 4 mg PO Q6H PRN (Reason: nausea and vomiting) Qty: 20 RF: 0 No Action (DME) Double Electric Breast Pump Qty: 1 RF: 0 prenat.vits,tigre,hvb-[id number]-dlkjt tablet 1 tab PO DAILY RF: 0 ibuprofen 600 mg tablet 600 mg PO Q6H PRN (Reason: pain and cramping) Qty: 30 RF: 2 Referrals: Sudha Stephens MD [Primary Care Provider] - Claudia Coombs ARNP [Non-Staff] - <Rashid Rueda DO - Last Filed: 10/25/19 22:24> [facility] I was immediately available in the department for consultation. This documentation has been reviewed and I agree with assessment and plan. Supervised by Rashid Rueda DO
[2019-10-25] MEDS: SODIUM CHLORIDE 0.9% 1,000 ML 1000 ML IV (17:59)
[2019-10-25] MEDS: ONDANSETRON 4 MG/2 ML INJ IV (17:59)
[2019-10-25 18:10] VITALS: BP 88/54; PULSE 98; RESP 18; O2SAT 98
--- NOTE | 2019-10-25 18:11 | PC.NURSE ---
denies dizzines,light headedness, skin warm dry and pink, moving all extremities.
[2019-10-25 18:18] LABS: Add Manual Diff / Slide Review NO; Basophils Absolute Auto 0 /uL (0-100); Basophils Percent Auto 0.2 % (0-2); Eosinophils Absolute Auto 0 /uL (0-450); Eosinophils Percent Auto 0.5 % (2-4); Hematocrit 39.5 % (36-46); Lymphocytes Absolute Auto 1100 /uL (1100-4500); Lymphocytes Percent Auto 12.5 % (25-40); Mean Corpuscular HGB Conc 32.9 % (30-36); Mean Corpuscular Hemoglobin 27.6 PG (26-34); Mean Corpuscular Volume 83.9 fL (80-100); Monocytes Absolute Auto 700 /uL (0-900); Monocytes Percent Auto 8.6 % (3-14); Neutrophils Absolute Auto 6700 /uL (1500-7000); Neutrophils Percent Auto 78.2 % (50-75); Platelet Count 184 X10^3/uL (150-400); Red Cell Distribution Width 13.6 % (11.6-14.8); White Blood Cell Count 8.6 X10^3/uL (4.5-11.0)
[2019-10-25 18:30] LABS: Alanine Aminotransferase 22 IU/L (<35); Albumin 4.3 g/dL (3.5-5.0); Albumin Globulin Ratio 1.4 (1.0-2.8); Alkaline Phosphatase 83 U/L (38-126); Aspartate Aminotransferase 50 IU/L (14-36); Bilirubin Total 0.3 mg/dL (0.2-1.3); Blood Urea Nitrogen 14 mg/dL (7-17); Calcium 9.1 mg/dL (8.4-10.2); Carbon Dioxide 26 mmol/L (22-32); Chloride 103 mmol/L (98-107); Estimated Glomerular Filt Rate > 60.0 mL/min (>60); Glucose 114 mg/dL (70-100); HEMOLYSIS < 15 (0-50); Potassium 3.6 mmol/L (3.4-5.1); Sodium 138 mmol/L (137-145); Total Protein 7.3 g/dL (6.3-8.2)
[2019-10-25 18:49] LABS: Procalcitonin < 0.05 ng/mL (<0.5)
[2019-10-25 19:01] VITALS: BP 88/58; PULSE 87; RESP 16; O2SAT 100
[2019-10-25] MEDS: OXYCODONE/ACETAMINOPHEN 5/325 TABLET 1 TAB PO (19:28)
[2019-10-25] MEDS: DICLOXACILLIN 250 MG CAPSULE 500 MG PO (21:00)
[2019-10-25 21:01] VITALS: BP 97/61; PULSE 90; RESP 15; O2SAT 96
== END 2019-10-25 21:02 | disposition home or self-care (01) ==
PROVIDERS: Emergency Provider Nurse Practitioner Family; PCP Obstetrics & Gynecology
DX: N61.0 Mastitis without abscess (principal); R51 Headache
CPT/HCPCS: 36415; 80053; 83605; 84145; 85025; 96361; 96374; 99284; J2405